=== PATIENT | female | born 1945 | race Hispanic/Latino ===

== ENCOUNTER 2016-11-04 07:46 | Day surgery (SDC) | payer MEDICARE ==
[2016-11-01 14:41] LABS: Hematocrit 23.6 % (30.3-42.9)
[~2016-11-04 07:46] MED LIST: FLUSH HEPARIN IV ONE
[2016-11-04] MEDS ORDERED: TYLENOL PO ONE (07:56)
[2016-11-04] MEDS ORDERED: NACL 0.9% 250ML 250 ML IV ONE (07:56)
[2016-11-04] MEDS ORDERED: BENADRYL PO ONE (07:56)
[2016-11-04] MEDS ORDERED: LASIX IV ONE (07:57)
[2016-11-04] MEDS ORDERED: FLUSH HEPARIN IV ONE (13:11)
[2016-11-04 13:44] VITALS: BP 102/57
== END 2016-11-04 13:45 | disposition home or self-care (01) ==
LOC: OPU 07:46
PROVIDERS: ATTEND Internal Medicine Hematology & Oncology
DX: D64.9 Anemia, unspecified (principal)
CPT/HCPCS: 36415; 36430; 85014; 85018; 86850; 86900; 86901; 86920; J1642; J7050; P9040

== ENCOUNTER 2017-01-09 08:43 | Outpatient (CLI) | payer MEDICARE ==
--- NOTE | 2017-01-09 12:43 | PET Report ---
PET/CT:01/09/17 08:43:00 CLINICAL: Right inflammatory breast cancer restaging. RADIOPHARMACEUTICAL: 13.58mCi F18-FDG. COMPARISON: 08/01/16 PET/CT TECHNIQUE- Following intravenous injection of F-18 FDG and an approximately 60 minute uptake period, CT and PET images from the mid skull to the upper thighs were acquired with the patient in the fasted state. No contrast was administered. The CT protocol used for this PET CT study is designed for attenuation correction and anatomic localization of PET abnormalities. This safety glass installer CT is not desired to produce and cannot replace, [id number] diagnostic CT scans with specific imaging protocols for different body parts and indications. Plasma glucose at the time of this test: 127g/dl. The standardized uptake values (SUV) are normalized to patient body weight and indicate the highest activity concentration (SUV max) in a given disease site. FINDINGS: Brain--Physiologic FDG uptake in the visualized regions of the brain. Neck--Physiologic FDG uptake . Chest--The right breast remains enlarged with thickened skin but decreased size and number of FDG avid breast masses and lower SUVs. The largest mass measures approximately 2.8 x 2.6 cm with SUV 9.7 compared to 9 cm x 5 cm and SUV 14.5. A smaller right subpectoral mass with SUV 7.4 compared to 10.1. Lungs--No abnormal uptake. No pulmonary nodule or mass. However, new bilateral lower lobe non-FDG avid reticular and reticulonodular interstitial opacities of uncertain significance. Pleura/pericardium--No abnormal uptake. No pleural effusion. Thoracic nodes--Bilateral FDG avid supra-clavicular and axillary lymph nodes but decreased size of nodes and lower SUV. A left subclavicular lymph node this should be 5.4 compared to 7.4. Right axillary lymph node SUV 5.9. The previously confirmed left axillary metastatic lymph node is smaller with SUV 6.3 compared to 7.9. Hepatobiliary--No abnormal uptake. Liver background SUV mean, as a reference for comparing FDG studies, is 3.4 compared to 3.2 on the last exam. No liver mass. Spleen--No abnormal uptake. Pancreas--No abnormal uptake. Adrenal Glands--No abnormal uptake. Kidneys/Ureters/Bladder--No abnormal uptake. Abdominopelvic Nodes--No abnormal uptake. Bowel/Peritoneum/Mesentery--No abnormal uptake. No suspicious bone lesions. Pelvic organs--No abnormal uptake. Bones/Soft Tissues--No abnormal uptake. IMPRESSION- 1. Partial response to chemotherapy with decrease size and number of bilateral subclavicular and axillary leticia metastases and decreased size and number of right breast masses with lower FDG uptake.2. New bilateral non-FDG avid lower lobe lung opacities of uncertain significance. These may be related to chemotherapy. 3. No evidence of hepatic or skeletal metastasis.
== END 2017-01-09 08:44 | disposition home or self-care (01) ==
LOC: PET 08:43
PROVIDERS: ATTEND Internal Medicine Hematology & Oncology
DX: C50.911 Malignant neoplasm of unspecified site of right female breast (principal); R19.7 Diarrhea, unspecified; N63 Unspecified lump in breast; Z79.899 Other long term (current) drug therapy
CPT/HCPCS: 78815; 82962; A9552

== ENCOUNTER 2017-03-05 08:51 | Outpatient (CLI) | payer MEDICARE ==
--- NOTE | 2017-03-05 14:40 | Magnetic Resonance Report ---
MRI of the brain with and without contrast. History: Breast cancer. Procedure: Routine brain protocol with and without contrast. Findings: The posterior fossa is normal. The ventricles are normal in size and contour. There is a chronic lacune in the left periventricular white matter. There is no restricted diffusion. No masses or extra-axial collections are seen. No postcontrast enhancement or other evidence of metastatic disease is seen. The pituitary gland is normal. The visualized extracranial structures are unremarkable except for some evidence of mild chronic ethmoid sinusitis. Impression: 1. No evidence of metastatic disease. 2. 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 3. No acute findings.
== END 2017-03-05 08:52 | disposition home or self-care (01) ==
LOC: SPVIMAG 08:51
PROVIDERS: ATTEND Internal Medicine Hematology & Oncology
DX: I63.9 Cerebral infarction, unspecified (principal); C50.911 Malignant neoplasm of unspecified site of right female breast
CPT/HCPCS: 70553; A9577